=== PATIENT | female | born 1995 | race Caucasian/White ===

== ENCOUNTER → 2016-12-24 | Outpatient (CLI) | payer MEDICAID | LOC: CIMAGING 16:10 | PROVIDERS: ATTEND Family Medicine | DX: M79.671 Pain in right foot (principal) | CPT/HCPCS: 73630-PO; 80053-PO; 80061-PO; 84443-PO ==

== ENCOUNTER → 2017-07-14 | Outpatient (CLI) | payer OTHER, MEDICAID | LOC: FIMAGING 15:16 | PROVIDERS: ATTEND Family Medicine | DX: M25.842 Other specified joint disorders, left hand (principal) ==